=== PATIENT | female | born 1975 | race Asian ===

== ENCOUNTER 2018-05-12 13:17 | Outpatient (CLI) | payer OTHER | END 2018-05-12 13:18 | disposition home or self-care (01) | LOC: BICMAMMO 13:17 | PROVIDERS: ATTEND Family Medicine | DX: Z12.31 Encounter for screening mammogram for malignant neoplasm of breast (principal) | CPT/HCPCS: 77063; 77067 ==

== ENCOUNTER 2018-11-01 08:27 | Outpatient (CLI) | payer OTHER ==
[2018-11-01] MEDS ORDERED: Iopamidol 370 76% 100 ML VIAL ONE (09:00)
--- NOTE | 2018-11-01 09:25 | CT ---
CT Abdomen Pelvis W Con History: [Pain. Weight loss. R10.10. RC63.4] Comparison: None. Findings: Lung bases are clear. No pericardial effusion. Liver spleen pancreas are unremarkable. Adrenal glands are unremarkable. No hydroureteronephrosis or nephroureterolithiasis. There is a lumbosacral vertebra with large left L5 transverse process of abnormal circulation and sac rum. There is thin medial acetabular herbert bilaterally. No retroperitoneal adenopathy. No free intraperitoneal gas or fluid. No dilated loops of large small bowel. Focal hepatic fat segmen ts 4A and 4B. The appendix is visualized and is normal. IMPRESSION: 1. No acute inflammatory process in the abdomen or pelvis. 2. Normal appendix. 3. Left adnexal residual cyst.
== END 2018-11-01 08:28 | disposition home or self-care (01) ==
LOC: SCSCT 08:27
PROVIDERS: ATTEND Family Medicine
DX: R10.10 Upper abdominal pain, unspecified (principal); R63.4 Abnormal weight loss; R63.0 Anorexia; N83.8 Other noninflammatory disorders of ovary, fallopian tube and broad ligament
CPT/HCPCS: 74177; Q9967

== ENCOUNTER 2018-12-09 09:46 | Day surgery (SDC) | payer OTHER ==
[2018-12-08 14:34] VITALS: BMI 20.2
--- NOTE | 2018-12-09 01:06 | HP ---
SHORT-STAY HISTORY AND PHYSICAL HISTORY OF PRESENT ILLNESS: This is a 43-year-old the [place] female with chronic dyspepsia. She complains of poor appetite. She also complains of feeling sick with all kind of foods. She only has boiled eggs and peanut butter and crackers for the last 2 months. Her symptoms are very difficult to explain. She has had symptoms like generalized shakiness, blood pressure going up and also heart rate raise up. She also has felt hot and burning under the skin. She felt weak and dizzy. The symptoms occur off and on. The patient comes to the ED because of dyspepsia. ALLERGIES: NONE. SOCIAL HISTORY: The patient does not smoke or drink alcohol. MEDICAL ILLNESSES: 1. Anxiety. 2. Adenoma. 3. fibro adenoma left breast. PHYSICAL EXAMINATION: GENERAL: Appears comfortable. VITAL SIGNS: Pulse is 70, blood pressure 130/70. HEENT: Conjunctivae clear. CARDIOVASCULAR: First and seconds heart sounds are heard. LUNGS: Clear to auscultation. ABDOMEN: Soft. No organomegaly. No tenderness. No masses. EXTREMITIES: Reveal no edema. ADMITTING DIAGNOSIS: A 43-year-old [place] female with chronic dyspepsia. She comes in for EGD. Job ID: [id number] [facility]
[2018-12-09] MEDS ORDERED: PROPOFOL 200 MG/20 ML VIAL ONE (10:24)
[2018-12-09] MEDS ORDERED: Lidocaine 1% PF 5 ML VIAL ONE (10:24)
[2018-12-09] MEDS ORDERED: Midazolam HCl 2 mg/2 ml Vial ONE (11:08)
--- NOTE | 2018-12-09 16:48 | OP ---
DATE OF PROCEDURE: 12/09/2018 PROCEDURE PERFORMED: Esophagogastroduodenoscopy with biopsy. PREOPERATIVE DIAGNOSIS: Chronic dyspepsia. POSTOPERATIVE DIAGNOSES: 1. Normal duodenum. 2. Normal stomach except for mild hyperemia of the gastric mucosa with prominent submucosal veins. 3. Mild mucosal hyperemia in the distal esophagus. DESCRIPTION OF PROCEDURE: The patient was placed on her left lateral position and was given sedation by Anesthesia Department. A [employer] video gastroscope under direct vision was passed down the oropharynx to the GE junction into the stomach and subsequently into the descending duodenum. The esophageal mucosa appeared normal over the upper two-thirds. Over the distal esophagus, mild mucosal hyperemia seen. The GE junction had no pathology. Retroflexion failed to show any pathology in fundus and cardia. The gastric body and proximal stomach showed mild mucosal hyperemia and prominent submucosal veins suggestive of gastric atrophy. Long part of the gastric body, incisura, and angularis had no pathology. The duodenal bulb and descending duodenum had no pathology. Random biopsies were obtained from the descending duodenum and also from the gastric antrum and gastric body. The stomach was decompressed the scope was removed. DISCHARGE PLANNING: This is a 43-year-old [place] female with chronic GI symptoms, came for EGD. The EGD showed no pathology to explain the patient's symptoms. She did have mild esophagitis and gastritis. DISCHARGE RECOMMENDATIONS: 1. Diet as tolerated. 2. We will await the gastric biopsy and decide whether she needs antibiotic therapy. Job ID: [id number]
== END 2018-12-09 13:15 | disposition home or self-care (01) ==
LOC: SDC 09:46
PROVIDERS: ATTEND Internal Medicine Gastroenterology
PROC: 0DB68ZX Excision of Stomach, Via Natural or Artificial Opening Endoscopic, Diagnostic (ICD-10-PCS; principal; 2018-12-09)
PROC: 0DB88ZX Excision of Small Intestine, Via Natural or Artificial Opening Endoscopic, Diagnostic (ICD-10-PCS; principal; 2018-12-09)
PROC: 0DB98ZX Excision of Duodenum, Via Natural or Artificial Opening Endoscopic, Diagnostic (ICD-10-PCS; principal; 2018-12-09)
DX: R10.13 Epigastric pain (principal); K29.50 Unspecified chronic gastritis without bleeding; K20.9 Esophagitis, unspecified; F41.9 Anxiety disorder, unspecified; D24.2 Benign neoplasm of left breast
CPT/HCPCS: 88305; 88312; J2001; J2250; J2704